=== PATIENT | male | born 1980 | race Caucasian/White ===

== ENCOUNTER 2016-05-10 17:03 | Emergency (ER) ==
[2016-05-10] MEDS ORDERED: ZOFRAN ODT PO ONE (18:53)
[2016-05-10] MEDS ORDERED: DILAUDID IM ONE (18:53)
--- NOTE | 2016-05-10 18:59 | PROVIDER DOCUMENTATION ---
HPI-Work Related Injury - General Chief Complaint: Work Related Injury Stated Complaint: WORK RELATED INJURY Time Seen by Provider: 05/10/16 18:39 Source: patient Allergies/Adverse Reactions: Patient Allergies Allergy/AdvReac Type Severity Reaction Status Date / Time No Known Allergies Allergy Verified 05/10/16 18:04 Home Medications: Metoprolol [Lopressor] 50 mg PO BID 09/18/13 - History of Present Illness-Work Injury Nature of PresentingProblem: 36 y/o WM c/o L elbow pain, forearm pain, wrist pain x 2 hours. 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 States pain 02/05. Reports significant LROM of LUE. Denies any other sxs. Denies any numbness/tingling. Review of Systems - Adult - REVIEW OF SYSTEMS - ADULT Constitutional: reports: no symptoms reported. denies: chills, fever Eyes: reports: no symptoms reported. denies: blurred vision, double vision Ears, Nose, Mouth & Throat: reports: no symptoms reported. denies: ear pain, nose pain Cardiovascular: reports: no symptoms reported. denies: chest pain, palpitations Respiratory: reports: no symptoms reported. denies: dyspnea on exertion, shortness of breath Gastrointestinal: reports: no symptoms reported. denies: abdominal pain, nausea , vomiting Genitourinary: reports: no symptoms reported. denies: dysuria, frequency Musculoskeletal: reports: see HPI, joint pain, joint swelling. denies: back pain Integumentary: reports: no symptoms reported. denies: nail changes, rash Neurological: reports: no symptoms reported. denies: numbness, paresthesia Psychiatric: reports: no symptoms reported Endocrine: reports: no symptoms reported. denies: cold intolerance, heat intolerance Hematologic/Lymphatic: reports: no symptoms reported. denies: easy bruising, prolonged bleeding Allergic/Immunologic: reports: no symptoms reported All Other Systems: Reviewed and Negative Past History - Adult - PAST MEDICAL HISTORY-ADULT Review of Records: reports: Nursing Assessment Review, Medications Reviewed Cardiovascular: reports: HTN, hyperlipidemia, other (arrythmia) Psychiatric: reports: bipolar, schizophrenia - PRIOR SURGERIES/PROCEDURES Surgical/Procedure History: reports: cholecystectomy - IMMUNIZATION STATUS Childhood Immunizations: See Nurse Assessment Flu Vaccine: See Nurse Assessment Physical Exam-Injury Related - Physical Exam-Injury Related Initial Vital Signs Reviewed: Yes General Appearance: alert, mild distress Eyes: pink conjunctivae Head, Ears, Nose, Mouth & Throat: normocephalic/atraumatic, moist mucous membranes Neck: supple, normal inspection. negative: C-spine tenderness, decresed ROM Respiratory: lungs clear, normal breath sounds. negative: crackles, rales, rhonchi, stridor, wheezing Cardiovascular: normal peripheral pulses, regular rate, rhythm. negative: bradycardia, tachycardia Peripheral Pulses: radial (R): 2+, radial (L): 2+ Back Exam: no vertebral tenderness Extremity: normal gait, normal capillary refill, swelling (L elbow, forearm, wrist), tenderness (L elbow, forearm, wrist). negative: normal range of motion (LROM), abnormal NV exam, pulse deficit Integumentary: normal color, warm/dry Neurologic: negative: aphasia, motor weakness, sensory deficit Psych/Mental Status: AL, normal mood/affect, normal thought content, normal thought process, oriented x 3 Progress - PLAN OF CARE/RESULTS Progress/Plan/Lab Results: Laboratory Tests 05/10/16 21:50 [facility] REFERRED FOR TESTING Orders Category Date Time Status Arm Sling DIRECTED Care 05/10/16 20:05 Active OCL Splint DIRECTED Care 05/10/16 20:05 Active ELBOW COMPLETE LEFT [RAD] Stat Exams 05/10/16 18:52 Taken SHOULDER-LEFT [RAD] Stat Exams 05/10/16 17:12 Taken WRIST COMPLETE LEFT [RAD] Stat Exams 05/10/16 18:53 Taken OHG URINE DRUG SCREEN Stat Lab 05/10/16 21:50 Completed Hydrocodone/APAP 7.5 mg/325 mg [Waldron-7.5] Med 05/10/16 20:40 Discontinued 1 each PO NOW ONE Hydromorphone [Dilaudid] Med 05/10/16 18:53 Discontinued 2 mg IM NOW ONE Ondansetron Odt [Zofran Odt] Med 05/10/16 18:53 Discontinued 4 mg PO NOW ONE Orphenadrine [Norflex] Med 05/10/16 20:54 Discontinued 60 mg IM NOW ONE Vital Signs Temp Pulse Resp BP Pulse Ox 05/10/16 21:08 89 18 142/89 100 05/10/16 17:08 98.0 F 107 H 18 144/91 99 No Known Allergies Allergy (Verified 05/10/16 18:04) Metoprolol [Lopressor] 50 mg PO BID 09/18/13 Hydrocodone/APAP 7.5 mg/325 mg [Waldron-7.5] 1 each PO Q6H PRN PRN #20 tablet 04/14 Ondansetron [Zofran] 4 mg PO Q6H PRN PRN #20 tablet 05/10/16 Laboratory 05/10/16 21:50 [facility] REFERRED FOR TESTING Discussed results and f/u with pt, including calling orthopedics in the AM for further management. - XRAY 1 XRAY: Left XRAY Study: Elbow XRAY Interpretation: radial neck fx; possible intra-articular involvement. 2 XRAY: Left XRAY Study: Wrist XRAY Interpretation: no fx or dislocation 3 XRAY: Left XRAY Study: Shoulder XRAY Interpretation: No fx or dislocation - CONSULTS/PCP/HOSPITALIST Notification #1 *Consult/PCP/Hospitalist*: Dr. Lau Time Discussed: 20:00 Reason/Comments: radial neck fx Consult Disposition: F/U in office (posterior splint; no intra-articular involvement. F/u in office tomorrow.) Procedures - SPLINTING Left Upper Extremity Pre-Procedure Neurovascular Exam: Intact Pre-Fabricated Splint: Arm Sling Splint Application (Hand-Made): Posterior OCL Applied By: asp net c developer Assisted By: ED Nurse Post Procedure Neurovascular Exam: Intact Procedure Comment: Pt tolerated well Departure - Departure Time of Disposition Order: 20:02 DIAGNOSIS: Radial neck fracture Qualifiers: Encounter type: initial encounter Fracture type: closed Fracture alignment: nondisplaced Laterality: left Qualified Code(s): S52.135A - Nondisplaced fracture of neck of left radius, initial encounter for closed fracture Disposition: HOME 01 Certified Medical Emergency: Emergent Condition: Stable Additional Instructions: Take medications as directed. Follow up with specialist for further management. RICE as needed. ED Follow Up Instructions: You have been treated by a care provider in the Emergency Department. These instructions are being provided to you so you can have an understanding of how to care for yourself upon discharge. Upon discharge from the Emergency Department, you are responsible for making arrangements for follow-up care by a physician of your choice. Take all prescribed medications as directed. Return to the Emergency Department immediately for any new or worsening symptoms. You may call the Physician Referral phone number at [phone] to obtain a list of Physicians who are taking new patients. Prescriptions: Hydrocodone/APAP 7.5 mg/325 mg [Waldron-7.5] 1 each PO Q6H PRN PRN #20 tablet PRN Reason: Pain Ondansetron [Zofran] 4 mg PO Q6H PRN PRN #20 tablet PRN Reason: Nausea Referrals: None,PCP [Primary Care Provider] - Ron Lau MD [STAFF PHYSICIAN] - Instructions: Radial Fracture Attestation - Physician/ Mid-level Attestation Patient care was provided by Mid-level provider (DIRECTOR OF STRATEGIC ALLIANCES/PA):: Yes Mid-level provider:: Bridget Call Mid-level documentation review:: The Mid-level provider documentation, treatment plan and medical decision making was reviewed by the physician who agrees with all treatment and medical decision making by the P.
[2016-05-10] MEDS ORDERED: NORCO-7.5 PO ONE (20:40)
[2016-05-10] MEDS ORDERED: NORFLEX IM ONE (20:54)
[2016-05-10 21:08] VITALS: BP 142/89
--- NOTE | 2016-05-11 06:50 | Diag Imaging Result Document ---
PROCEDURE NAME: SHOULDER-LEFT - 05/10/2016 LEFT SHOULDER, 3 VIEWS: FINDINGS: No separation at the acromioclavicular joint. There are mild degenerative changes at the AC joint. No fracture. No dislocation. IMPRESSION: No acute bony injury.
--- NOTE | 2016-05-11 06:53 | Diag Imaging Result Document ---
PROCEDURE NAME: WRIST COMPLETE LEFT - 05/10/2016 LEFT WRIST, THREE VIEWS: FINDINGS: No fracture. No dislocation. IMPRESSION: No acute bony injury.
--- NOTE | 2016-05-11 07:52 | Diag Imaging Result Document ---
PROCEDURE NAME: ELBOW COMPLETE LEFT - 05/10/2016 LEFT ELBOW THREE VIEWS: FINDINGS: The lateral view is not taken at 90 degrees. There is a fracture through the radial head with mild compaction. No other fracture or dislocation. IMPRESSION: Radial head fracture.
== END 2016-05-10 21:44 | disposition home or self-care (01) ==
LOC: ED 17:03
DX: S52.135A Nondisplaced fracture of neck of left radius, initial encounter for closed fracture (principal); M25.522 Pain in left elbow; M79.632 Pain in left forearm; M25.532 Pain in left wrist; W22.8XXA Striking against or struck by other objects, initial encounter; M25.422 Effusion, left elbow; M25.432 Effusion, left wrist; M79.89 Other specified soft tissue disorders; I10 Essential (primary) hypertension; E78.5 Hyperlipidemia, unspecified; F31.9 Bipolar disorder, unspecified; F20.9 Schizophrenia, unspecified; Z79.899 Other long term (current) drug therapy
CPT/HCPCS: 96374; 96375; J1170; J2360